=== PATIENT | male | born 1935 | race Caucasian/White ===

== ENCOUNTER 2018-10-04 14:40 | Emergency (ER) | payer OTHER, MEDICAID ==
[~2018-10-04] VITALS: Ht 177.8 cm; Wt 95.3 kg
[2018-10-04 14:40] VITALS: BP_SYST 97
[~2018-10-04 14:40] MED LIST: ACET325T53 PO; ARTT OP; ASPI-1155 PO; ATEN-41 PO; AZAT50TA18 GT; BACL10TA PO; BICA50TA PO; CAPT25TA3 PO; CRAN450C PO; DOCU250C14 GT; FAMO-132 GT; HYDR-1189 PO; LACT10SO66 PO; LEUP7.5D4 IM; LEVO150T8 GT; NOR10 PO; SENN-153 GT
[2018-10-04] MEDS ORDERED: methylPREDNISolone SOD SUCC/PF 62.5 MG/ML VIAL IVP ONE (14:45)
[2018-10-04] MEDS ORDERED: LOP600 GT (15:05)
[2018-10-04] MEDS ORDERED: UTI-STAT GT (15:05)
[2018-10-04] MEDS ORDERED: MOM GT (15:05)
[2018-10-04] MEDS ORDERED: RIVA10TA GT (15:05)
[2018-10-04] MEDS ORDERED: PEDI1TAB28 GT (15:05)
[2018-10-04] MEDS ORDERED: ASCO500T20 GT (15:05)
[2018-10-04] MEDS ORDERED: ATRMDI INH (15:05)
[2018-10-04] MEDS ORDERED: BISA10SU61 RC (15:05)
[2018-10-04] MEDS ORDERED: LEVA1.2527 INH ×2 (15:05)
[2018-10-04] MEDS ORDERED: ACET12.55 GT (15:05)
[2018-10-04 15:23] LABS: HEMATOCRIT 40.2 % (36-54); HEMOGLOBIN 12.9 g/dL (14.0-18.0); MEAN CORPUSCULAR HEMOGLOBIN 29 pg (27-31); MEAN CORPUSCULAR HGB CONC 32 % (32-36); MEAN CORPUSCULAR VOLUME 90 fL (79.0-98.0); PLATELET COUNT (AUTO) 253 K/uL (130-430); RED BLOOD CELL COUNT(AUTO) 4.49 MIL/uL (4.2-6.2); RED CELL DISTRIBUTION WIDTH 17.9 % (9.0-15.0); WHITE BLOOD COUNT (AUTO) 13.2 K/uL (4.8-10.8)
[2018-10-04 15:29] LABS: ANION GAP 5 (5-15); CALCIUM 11.4 mg/dL (8.4-11.0); CHLORIDE 104 mmol/L (98-107); CREATININE 0.93 mg/dL (0.55-1.30); GLUCOSE 158 mg/dL (70-99); POTASSIUM 4.5 mmol/L (3.5-5.1); SODIUM SERUM 139 mmol/L (136-145); UREA NITROGEN, BLOOD 31 mg/dL (8-21)
[2018-10-04 15:30] LABS: PROTHROMBIN TIME 10.2 SECS (9.5-12.5)
[2018-10-04 15:34] LABS: ALANINE AMINOTRANSFERASE 47 U/L (12-78); ALBUMIN 3.3 g/dL (3.4-4.8); ASPARTATE AMINOTRANSFERASE 51 U/L (10-37); TOTAL BILIRUBIN 0.4 mg/dL (0.0-1.0)
[2018-10-04 15:36] LABS: BAND % (MANUAL) 5 % (0-6); BASOPHILS % (MANUAL) 0 % (0-2); EOSINOPHILS % (MANUAL) 1 % (0-7); LYMPHOCYTES % (MANUAL) 3 % (20-46); MONOCYTES % (MANUAL) 4 % (0-11)
[2018-10-04 19:10] VITALS: BP_SYST 116
== END 2018-10-04 19:10 | disposition home or self-care (01) ==
LOC: SED 14:40
DX: R21 Rash and other nonspecific skin eruption (principal); I25.2 Old myocardial infarction; I10 Essential (primary) hypertension; K21.9 Gastro-esophageal reflux disease without esophagitis; Z85.828 Personal history of other malignant neoplasm of skin; Z79.82 Long term (current) use of aspirin; Z79.899 Other long term (current) drug therapy
CPT/HCPCS: 36415; 71045; 80053; 83605; 83880; 84484; 85007; 85027; 85610; 86710; 87040; 93005; 94640; 96374; 99283; J2930

== ENCOUNTER 2018-10-23 06:21 | Inpatient (IN) | payer OTHER, MEDICAID ==
[2018-10-23] VITALS (27 sets, daily range): BP systolic 81–139
[~2018-10-23] VITALS: Ht 165.1 cm; Wt 89.8 kg
[~2018-10-23 06:21] MED LIST changes: +ACET12.55 GT; +ACET325T53 GT; -ACET325T53 PO; +ASCO500T20 GT; +ATRMDI INH; +BISA10SU61 RC; +LEVA1.2527 INH; +LOP600 GT; +MOM GT; +PEDI1TAB28 GT; +RIVA10TA GT; +UTI-STAT GT
[2018-10-23] MEDS ORDERED: VANCOMYCIN HCL 1,000 MG in NS 250 ML IV ONE (06:30)
[2018-10-23 07:00] LABS: ANION GAP 4 (5-15); BASOPHILS % (AUTO) 0.2 % (0.0-2.0); CALCIUM 10.4 mg/dL (8.4-11.0); CHLORIDE 110 mmol/L (98-107); CREATININE 0.75 mg/dL (0.55-1.30); EOSINOPHILS # (AUTO) 0.1 K/uL (0.0-0.4); EOSINOPHILS % (AUTO) 0.7 % (0.0-4.0); GLUCOSE 135 mg/dL (70-99); HEMATOCRIT 33.7 % (36-54); HEMOGLOBIN 11.2 g/dL (14.0-18.0); LYMPHOCYTES # (AUTO) 0.2 K/uL (1.0-5.5); LYMPHOCYTES % (AUTO) 2.4 % (20.5-51.5); MEAN CORPUSCULAR HEMOGLOBIN 29 pg (27-31); MEAN CORPUSCULAR HGB CONC 33 % (32-36); MEAN CORPUSCULAR VOLUME 87 fL (79.0-98.0); MONOCYTES # (AUTO) 0.5 K/uL (0.0-1.0); MONOCYTES % (AUTO) 5.4 % (1.7-9.3); NEUTROPHILS # (AUTO) 8.8 K/uL (1.8-7.7); NEUTROPHILS % (AUTO) 91.3 % (40.0-70.0); PLATELET COUNT (AUTO) 516 K/uL (130-430); POTASSIUM 5.4 mmol/L (3.5-5.1); RED BLOOD CELL COUNT(AUTO) 3.86 MIL/uL (4.2-6.2); RED CELL DISTRIBUTION WIDTH 17.8 % (9.0-15.0); SODIUM SERUM 146 mmol/L (136-145); UREA NITROGEN, BLOOD 20 mg/dL (8-21); WHITE BLOOD COUNT (AUTO) 9.6 K/uL (4.8-10.8)
[2018-10-23] MEDS ORDERED: VANCOMYCIN HCL 1000 MG/VIAL IV ONE (07:00)
[2018-10-23] MEDS ORDERED: NOREPINEPHRINE BITARTRATE 4 MG in NS 246 ML IV ONE (07:00)
[2018-10-23] MEDS ORDERED: NOREPINEPHRINE 4 MG/4 ML VIAL IV ONE (07:00)
[2018-10-23 07:09] LABS: ALANINE AMINOTRANSFERASE 9 U/L (12-78); ALBUMIN 2.2 g/dL (3.4-4.8); ASPARTATE AMINOTRANSFERASE 18 U/L (10-37); TOTAL BILIRUBIN 0.2 mg/dL (0.0-1.0)
[2018-10-23] MEDS ORDERED: NACL 0.9% 2,000 ML IV ONE (07:15)
[2018-10-23 07:30] LABS: PROTHROMBIN TIME 10.1 SECS (9.5-12.5)
[2018-10-23] MEDS ORDERED: KCL 20 mEq in 0.45% NS 1000 mL 1,000 ML IV ONE (09:00)
[2018-10-23] MEDS ORDERED: 0.45% NACL 1,000 ML IV SCH (10:30)
[2018-10-23 11:43] LABS: BILIRUBIN,URINE NEGATIVE (NEGATIVE); BLOOD, URINE NEGATIVE (NEGATIVE); CLARITY/URINE CLEAR (CLEAR); COLOR,URINE YELLOW (YELLOW); GLUCOSE,URINE NEGATIVE (NEGATIVE); KETONES,URINE NEGATIVE (NEGATIVE); LEUKOCYTE ESTERASE ,URINE TRACE (NEGATIVE); NITRITE, URINE NEGATIVE (NEGATIVE); PROTEIN URINE 1+ (NEGATIVE); UROBILINOGEN,URINE 0.2 (0.2-1.0)
[2018-10-23 12:20] LABS: BACTERIA,URINE FEW /HPF (None Seen); MUCUS,URINE None Seen /LPF (None Seen)
[2018-10-23] MEDS: PIPERACILLIN/TAZO 3.375 GM in NS 50 ML IV SCH ×3 (12:47→23:28)
[2018-10-23] MEDS ORDERED: BISACODYL 10 MG/SUPPOSITORY RC SCH (13:45)
[2018-10-23] MEDS ORDERED: HYDROcodone/ACETAMIN 5-325 MG TAB (NORCO/ VICODIN) GT PRN ×2 (13:45)
[2018-10-23] MEDS ORDERED: IPRATROPIUM BROM 0.5 MG/2.5 ML VIAL.NEB (ATROVENT) INH PRN ×2 (13:45→15:00)
[2018-10-23] MEDS ORDERED: PEG 400/HYPROMELLOSE/GLYCERIN 15 ML DROPS OP SCH (13:45)
[2018-10-23] MEDS ORDERED: MILK OF MAGNESIA 30 ML UDC GT SCH (13:45)
[2018-10-23] MEDS ORDERED: ACETAMINOPHEN 325 MG TABLET GT PRN (13:45)
[2018-10-23] MEDS ORDERED: ACETAMINOPHEN WITH CODEINE 12.5 ML UDC GT SCH (13:45)
[2018-10-23] MEDS ORDERED: ALBUMIN HUMAN 25% 100 ML IV ONE ×2 (14:30→14:31)
[2018-10-23] MEDS: ceFAZolin SODIUM 2 GM in D5W 100 ML IV SCH ×2 (14:43→21:43)
[2018-10-23] MEDS ORDERED: ALBUTEROL SULFATE 0.083% 2.5 MG/3 ML VIAL.NEB INH PRN (15:00)
[2018-10-23] MEDS: BACLOFEN 10 MG TABLET GT SCH ×2 (17:32→20:44)
[2018-10-23] MEDS ORDERED: DEXTROSE 50% JECT 50 ML DISP.SYRIN IVP PRN (17:45)
[2018-10-23] MEDS ORDERED: COMMUNICATION ORDER XX ONE (19:15)
[2018-10-23] MEDS: IPRATROPIUM BROM 0.5 MG/2.5 ML VIAL.NEB (ATROVENT) INH SCH (19:33)
[2018-10-23] MEDS: ALBUTEROL SULFATE 0.083% 2.5 MG/3 ML VIAL.NEB INH SCH (19:33)
[2018-10-23] MEDS: GEMFIBROZIL 600 MG TABLET (LOPID) GT SCH (20:43)
[2018-10-23] MEDS: SENNOSIDES 8.6 MG TABLET GT SCH (20:44)
[2018-10-23] MEDS: ASCORBIC ACID 500 MG TABLET GT SCH (20:45)
[2018-10-23] MEDS: RIVAROXABAN 10 MG TABLET GT SCH (20:45)
[2018-10-23] MEDS: D5/0.45 NS 1,000 ML IV SCH (21:11)
[2018-10-24] VITALS (32 sets, daily range): BP systolic 97–153
[2018-10-24] MEDS: ALBUTEROL SULFATE 0.083% 2.5 MG/3 ML VIAL.NEB INH SCH ×4 (01:00→20:09)
[2018-10-24] MEDS: IPRATROPIUM BROM 0.5 MG/2.5 ML VIAL.NEB (ATROVENT) INH SCH ×4 (01:00→20:09)
[2018-10-24] MEDS: D5/0.45 NS 1,000 ML IV SCH ×2 (04:37→14:31)
[2018-10-24] MEDS: PIPERACILLIN/TAZO 3.375 GM in NS 50 ML IV SCH ×4 (05:26→23:39)
[2018-10-24] MEDS: ceFAZolin SODIUM 2 GM in D5W 100 ML IV SCH ×3 (06:13→21:37)
[2018-10-24 06:42] LABS: ANION GAP 8 (5-15); CALCIUM 8.9 mg/dL (8.4-11.0); CHLORIDE 109 mmol/L (98-107); CREATININE 0.71 mg/dL (0.55-1.30); GLUCOSE 102 mg/dL (70-99); POTASSIUM 3.7 mmol/L (3.5-5.1); SODIUM SERUM 144 mmol/L (136-145); UREA NITROGEN, BLOOD 16 mg/dL (8-21)
[2018-10-24 07:17] LABS: BASOPHILS % (AUTO) 0.7 % (0.0-2.0); EOSINOPHILS # (AUTO) 0.2 K/uL (0.0-0.4); EOSINOPHILS % (AUTO) 2.9 % (0.0-4.0); HEMATOCRIT 27.2 % (36-54); HEMOGLOBIN 8.9 g/dL (14.0-18.0); LYMPHOCYTES # (AUTO) 0.8 K/uL (1.0-5.5); LYMPHOCYTES % (AUTO) 10.9 % (20.5-51.5); MEAN CORPUSCULAR HEMOGLOBIN 29 pg (27-31); MEAN CORPUSCULAR HGB CONC 33 % (32-36); MEAN CORPUSCULAR VOLUME 88 fL (79.0-98.0); MONOCYTES # (AUTO) 0.5 K/uL (0.0-1.0); MONOCYTES % (AUTO) 6.7 % (1.7-9.3); NEUTROPHILS # (AUTO) 5.6 K/uL (1.8-7.7); NEUTROPHILS % (AUTO) 78.8 % (40.0-70.0); PLATELET COUNT (AUTO) 352 K/uL (130-430); RED BLOOD CELL COUNT(AUTO) 3.08 MIL/uL (4.2-6.2); RED CELL DISTRIBUTION WIDTH 18.1 % (9.0-15.0)
[2018-10-24 07:29] LABS: WHITE BLOOD COUNT (AUTO) 7.1 K/uL (4.8-10.8)
[2018-10-24] MEDS: BACLOFEN 10 MG TABLET GT SCH ×4 (09:01→20:24)
[2018-10-24] MEDS: FAMOTIDINE 20 MG TABLET GT SCH (09:01)
[2018-10-24] MEDS: GEMFIBROZIL 600 MG TABLET (LOPID) GT SCH ×2 (09:05→20:24)
[2018-10-24] MEDS: LEVOTHYROXINE SODIUM 0.15 MG TABLET GT SCH (09:05)
[2018-10-24] MEDS: LACTULOSE 20 GM/30 ML UDC GT SCH (09:06)
[2018-10-24] MEDS: DOCUSATE SODIUM 100 MG/10 ML UDC GT SCH (09:06)
[2018-10-24] MEDS: amLODIPine BESYLATE 10 MG TABLET GT SCH (09:07)
[2018-10-24] MEDS: ASCORBIC ACID 500 MG TABLET GT SCH ×2 (09:07→20:24)
[2018-10-24] MEDS: azaTHIOprine 50 MG TABLET GT SCH (09:08)
[2018-10-24] MEDS: ASPIRIN 81 MG TAB.CHEW GT SCH (09:08)
[2018-10-24] MEDS: ATENOLOL 25 MG TABLET(TENORMIN) GT SCH (09:09)
[2018-10-24] MEDS: SENNOSIDES 8.6 MG TABLET GT SCH (20:24)
[2018-10-24] MEDS: RIVAROXABAN 10 MG TABLET GT SCH (20:25)
[2018-10-25] VITALS (30 sets, daily range): BP systolic 114–146
[2018-10-25] MEDS: IPRATROPIUM BROM 0.5 MG/2.5 ML VIAL.NEB (ATROVENT) INH SCH ×2 (02:31→19:14)
[2018-10-25] MEDS: ALBUTEROL SULFATE 0.083% 2.5 MG/3 ML VIAL.NEB INH SCH ×2 (02:31→19:14)
[2018-10-25] MEDS: D5/0.45 NS 1,000 ML IV SCH ×2 (04:55→18:07)
[2018-10-25] MEDS: PIPERACILLIN/TAZO 3.375 GM in NS 50 ML IV SCH ×4 (05:26→23:36)
[2018-10-25] MEDS: ceFAZolin SODIUM 2 GM in D5W 100 ML IV SCH (06:16)
[2018-10-25 08:24] LABS: BASOPHILS % (AUTO) 0.2 % (0.0-2.0); EOSINOPHILS # (AUTO) 0.1 K/uL (0.0-0.4); EOSINOPHILS % (AUTO) 2.1 % (0.0-4.0); HEMATOCRIT 27.6 % (36-54); HEMOGLOBIN 8.7 g/dL (14.0-18.0); LYMPHOCYTES # (AUTO) 0.7 K/uL (1.0-5.5); LYMPHOCYTES % (AUTO) 10.5 % (20.5-51.5); MEAN CORPUSCULAR HEMOGLOBIN 28 pg (27-31); MEAN CORPUSCULAR HGB CONC 32 % (32-36); MEAN CORPUSCULAR VOLUME 88 fL (79.0-98.0); MONOCYTES # (AUTO) 0.5 K/uL (0.0-1.0); MONOCYTES % (AUTO) 8.2 % (1.7-9.3); NEUTROPHILS # (AUTO) 5.2 K/uL (1.8-7.7); PLATELET COUNT (AUTO) 303 K/uL (130-430); RED BLOOD CELL COUNT(AUTO) 3.13 MIL/uL (4.2-6.2); RED CELL DISTRIBUTION WIDTH 18.6 % (9.0-15.0); WHITE BLOOD COUNT (AUTO) 6.5 K/uL (4.8-10.8)
[2018-10-25] MEDS: BACLOFEN 10 MG TABLET GT SCH ×4 (08:36→21:18)
[2018-10-25] MEDS: DOCUSATE SODIUM 100 MG/10 ML UDC GT SCH (08:36)
[2018-10-25] MEDS: GEMFIBROZIL 600 MG TABLET (LOPID) GT SCH ×2 (08:37→21:18)
[2018-10-25] MEDS: amLODIPine BESYLATE 10 MG TABLET GT SCH (08:37)
[2018-10-25] MEDS: LEVOTHYROXINE SODIUM 0.15 MG TABLET GT SCH (08:38)
[2018-10-25] MEDS: ASCORBIC ACID 500 MG TABLET GT SCH ×2 (08:38→21:18)
[2018-10-25] MEDS: LACTULOSE 20 GM/30 ML UDC GT SCH (08:38)
[2018-10-25] MEDS: FAMOTIDINE 20 MG TABLET GT SCH (08:39)
[2018-10-25] MEDS: ASPIRIN 81 MG TAB.CHEW GT SCH (08:39)
[2018-10-25] MEDS: azaTHIOprine 50 MG TABLET GT SCH (08:41)
[2018-10-25] MEDS: ATENOLOL 25 MG TABLET(TENORMIN) GT SCH (08:41)
[2018-10-25 08:52] LABS: ANION GAP 9 (5-15); CALCIUM 8.6 mg/dL (8.4-11.0); CHLORIDE 104 mmol/L (98-107); CREATININE 0.77 mg/dL (0.55-1.30); GLUCOSE 300 mg/dL (70-99); SODIUM SERUM 138 mmol/L (136-145); UREA NITROGEN, BLOOD 14 mg/dL (8-21)
[2018-10-25] MEDS ORDERED: FUROSEMIDE 20 MG/2 ML VIAL IVP ONE (10:45)
[2018-10-25] MEDS: SENNOSIDES 8.6 MG TABLET GT SCH (21:18)
[2018-10-25] MEDS: RIVAROXABAN 10 MG TABLET GT SCH (21:19)
[2018-10-25] MEDS: CEFAZOLIN 2 GM IVPB PREMIX 50 ML IV SCH (21:30)
[2018-10-26] VITALS (35 sets, daily range): BP systolic 96–168
[2018-10-26] MEDS: ALBUTEROL SULFATE 0.083% 2.5 MG/3 ML VIAL.NEB INH SCH ×4 (01:18→19:06)
[2018-10-26] MEDS: IPRATROPIUM BROM 0.5 MG/2.5 ML VIAL.NEB (ATROVENT) INH SCH ×4 (01:18→19:06)
[2018-10-26] MEDS: PIPERACILLIN/TAZO 3.375 GM in NS 50 ML IV SCH (05:30)
[2018-10-26] MEDS: CEFAZOLIN 2 GM IVPB PREMIX 50 ML IV SCH (06:15)
[2018-10-26] MEDS: D5/0.45 NS 1,000 ML IV SCH ×2 (07:47→21:10)
[2018-10-26] MEDS: GEMFIBROZIL 600 MG TABLET (LOPID) GT SCH ×2 (09:24→20:37)
[2018-10-26] MEDS: DOCUSATE SODIUM 100 MG/10 ML UDC GT SCH (09:24)
[2018-10-26] MEDS: LACTULOSE 20 GM/30 ML UDC GT SCH (09:24)
[2018-10-26] MEDS: ASPIRIN 81 MG TAB.CHEW GT SCH (09:25)
[2018-10-26] MEDS: FAMOTIDINE 20 MG TABLET GT SCH (09:25)
[2018-10-26] MEDS: ASCORBIC ACID 500 MG TABLET GT SCH ×2 (09:25→20:37)
[2018-10-26] MEDS: BACLOFEN 10 MG TABLET GT SCH ×4 (09:25→20:37)
[2018-10-26] MEDS: LEVOTHYROXINE SODIUM 0.15 MG TABLET GT SCH (09:26)
[2018-10-26] MEDS: azaTHIOprine 50 MG TABLET GT SCH (09:27)
[2018-10-26] MEDS: ATENOLOL 25 MG TABLET(TENORMIN) GT SCH (09:31)
[2018-10-26] MEDS: amLODIPine BESYLATE 10 MG TABLET GT SCH (09:31)
[2018-10-26 10:27] LABS: BASOPHILS % (AUTO) 0.3 % (0.0-2.0); EOSINOPHILS # (AUTO) 0.2 K/uL (0.0-0.4); EOSINOPHILS % (AUTO) 3.1 % (0.0-4.0); HEMATOCRIT 27.4 % (36-54); HEMOGLOBIN 8.8 g/dL (14.0-18.0); LYMPHOCYTES # (AUTO) 0.7 K/uL (1.0-5.5); MEAN CORPUSCULAR HEMOGLOBIN 29 pg (27-31); MEAN CORPUSCULAR HGB CONC 32 % (32-36); MEAN CORPUSCULAR VOLUME 89 fL (79.0-98.0); MONOCYTES # (AUTO) 0.4 K/uL (0.0-1.0); MONOCYTES % (AUTO) 7.5 % (1.7-9.3); NEUTROPHILS # (AUTO) 4.1 K/uL (1.8-7.7); NEUTROPHILS % (AUTO) 77.1 % (40.0-70.0); PLATELET COUNT (AUTO) 274 K/uL (130-430); RED BLOOD CELL COUNT(AUTO) 3.08 MIL/uL (4.2-6.2); RED CELL DISTRIBUTION WIDTH 20.1 % (9.0-15.0); WHITE BLOOD COUNT (AUTO) 5.4 K/uL (4.8-10.8)
[2018-10-26 10:39] LABS: ANION GAP 8 (5-15); CALCIUM 8.8 mg/dL (8.4-11.0); CHLORIDE 104 mmol/L (98-107); CREATININE 0.82 mg/dL (0.55-1.30); GLUCOSE 283 mg/dL (70-99); POTASSIUM 3.5 mmol/L (3.5-5.1); SODIUM SERUM 137 mmol/L (136-145); UREA NITROGEN, BLOOD 11 mg/dL (8-21)
[2018-10-26] MEDS ORDERED: POTASSIUM CHLORIDE 20 MEQ/PKT PACKET GT ONE (11:00)
[2018-10-26] MEDS ORDERED: FUROSEMIDE 20 MG/2 ML VIAL IVP ONE (11:00)
[2018-10-26] MEDS: CEFTOLOZANE IV SCH ×2 (13:39→21:58)
[2018-10-26] MEDS: TAZOBACTAM IV SCH ×2 (13:39→21:58)
[2018-10-26] MEDS: D5W IV SCH ×2 (13:39→21:58)
[2018-10-26] MEDS: SENNOSIDES 8.6 MG TABLET GT SCH (20:37)
[2018-10-26] MEDS: RIVAROXABAN 10 MG TABLET GT SCH (21:09)
[2018-10-27] VITALS (30 sets, daily range): BP systolic 101–150
[2018-10-27] MEDS: IPRATROPIUM BROM 0.5 MG/2.5 ML VIAL.NEB (ATROVENT) INH SCH ×4 (00:46→19:33)
[2018-10-27] MEDS: ALBUTEROL SULFATE 0.083% 2.5 MG/3 ML VIAL.NEB INH SCH ×4 (00:46→19:32)
[2018-10-27] MEDS: TAZOBACTAM IV SCH ×3 (05:45→21:09)
[2018-10-27] MEDS: D5W IV SCH ×3 (05:45→21:09)
[2018-10-27] MEDS: CEFTOLOZANE IV SCH ×3 (05:45→21:09)
[2018-10-27 07:45] LABS: ANION GAP 8 (5-15); CALCIUM 9.3 mg/dL (8.4-11.0); CHLORIDE 105 mmol/L (98-107); CREATININE 0.63 mg/dL (0.55-1.30); GLUCOSE 104 mg/dL (70-99); POTASSIUM 3.9 mmol/L (3.5-5.1); SODIUM SERUM 139 mmol/L (136-145); UREA NITROGEN, BLOOD 13 mg/dL (8-21)
[2018-10-27] MEDS: DOCUSATE SODIUM 100 MG/10 ML UDC GT SCH (09:00)
[2018-10-27] MEDS: POTASSIUM CHLORIDE 20 MEQ/PKT PACKET PO SCH ×2 (09:00→18:56)
[2018-10-27] MEDS: FUROSEMIDE 20 MG/2 ML VIAL IVP SCH ×2 (09:00→18:57)
[2018-10-27] MEDS: LACTULOSE 20 GM/30 ML UDC GT SCH (09:00)
[2018-10-27] MEDS: ASCORBIC ACID 500 MG TABLET GT SCH ×2 (09:01→20:26)
[2018-10-27] MEDS: ASPIRIN 81 MG TAB.CHEW GT SCH (09:01)
[2018-10-27] MEDS: GEMFIBROZIL 600 MG TABLET (LOPID) GT SCH ×2 (09:01→20:26)
[2018-10-27] MEDS: azaTHIOprine 50 MG TABLET GT SCH (09:01)
[2018-10-27] MEDS: LEVOTHYROXINE SODIUM 0.15 MG TABLET GT SCH (09:01)
[2018-10-27] MEDS: amLODIPine BESYLATE 10 MG TABLET GT SCH (09:02)
[2018-10-27] MEDS: ATENOLOL 25 MG TABLET(TENORMIN) GT SCH (09:02)
[2018-10-27] MEDS: FAMOTIDINE 20 MG TABLET GT SCH (09:02)
[2018-10-27] MEDS: BACLOFEN 10 MG TABLET GT SCH ×4 (09:02→20:26)
[2018-10-27] MEDS: D5/0.45 NS 1,000 ML IV SCH (14:00)
[2018-10-27] MEDS: SENNOSIDES 8.6 MG TABLET GT SCH (20:26)
[2018-10-27] MEDS: RIVAROXABAN 10 MG TABLET GT SCH (20:28)
[2018-10-27 23:20] LABS: BODY FLUID GLUCOSE 125 mg/dL; BODY FLUID TOTAL PROTEIN 3.9 g/dL
[2018-10-28] VITALS (31 sets, daily range): BP systolic 101–140
[2018-10-28 00:10] LABS: APPEARANCE,SPUN,BODY FLUID CLEAR (CLEAR); BF APPEARANCE UNSPUN CLOUDY (CLEAR); BODY FLUID COLOR YELLOW (LT YELLOW); BODY FLUID SOURCE/ TYPE PLEURAL; BODY FLUID TOTAL VOLUME 1000 mL; SOURCE/TYPE ,BODY FLUID PLEURAL; WBC, BODY FLUID 273 /uL
[2018-10-28 00:11] LABS: RBC, BODY FLUID 1138 /uL
[2018-10-28 00:12] LABS: EOSINOPHIL, BODY FLUID 0 %; LYMPHOCYTES, BODY FLUID 38 %; MONOCYTES,BODY FLUID 5 %; NEUTROPHIL, BODY FLUID 57 %
[2018-10-28] MEDS: IPRATROPIUM BROM 0.5 MG/2.5 ML VIAL.NEB (ATROVENT) INH SCH ×4 (00:48→19:43)
[2018-10-28] MEDS: ALBUTEROL SULFATE 0.083% 2.5 MG/3 ML VIAL.NEB INH SCH ×4 (00:49→19:43)
[2018-10-28] MEDS: TAZOBACTAM IV SCH ×3 (05:59→22:02)
[2018-10-28] MEDS: CEFTOLOZANE IV SCH ×3 (05:59→22:02)
[2018-10-28] MEDS: D5W IV SCH ×3 (05:59→22:02)
[2018-10-28] MEDS: D5/0.45 NS 1,000 ML IV SCH ×2 (05:59→17:47)
[2018-10-28 06:43] LABS: BASOPHILS % (AUTO) 0.2 % (0.0-2.0); EOSINOPHILS # (AUTO) 0.1 K/uL (0.0-0.4); EOSINOPHILS % (AUTO) 1.4 % (0.0-4.0); HEMOGLOBIN 9.6 g/dL (14.0-18.0); LYMPHOCYTES # (AUTO) 0.6 K/uL (1.0-5.5); LYMPHOCYTES % (AUTO) 7.2 % (20.5-51.5); MEAN CORPUSCULAR HEMOGLOBIN 29 pg (27-31); MEAN CORPUSCULAR HGB CONC 33 % (32-36); MEAN CORPUSCULAR VOLUME 89 fL (79.0-98.0); MONOCYTES # (AUTO) 0.5 K/uL (0.0-1.0); MONOCYTES % (AUTO) 6.9 % (1.7-9.3); NEUTROPHILS # (AUTO) 6.6 K/uL (1.8-7.7); NEUTROPHILS % (AUTO) 84.3 % (40.0-70.0); PLATELET COUNT (AUTO) 207 K/uL (130-430); RED BLOOD CELL COUNT(AUTO) 3.28 MIL/uL (4.2-6.2); RED CELL DISTRIBUTION WIDTH 19.4 % (9.0-15.0); WHITE BLOOD COUNT (AUTO) 7.8 K/uL (4.8-10.8)
[2018-10-28 06:52] LABS: ANION GAP 7 (5-15); CHLORIDE 102 mmol/L (98-107); CREATININE 0.62 mg/dL (0.55-1.30); GLUCOSE 106 mg/dL (70-99); SODIUM SERUM 136 mmol/L (136-145); UREA NITROGEN, BLOOD 12 mg/dL (8-21)
[2018-10-28 07:21] LABS: TOTAL IRON BIND. CAPACITY 197 ug/dL (250-450)
[2018-10-28] MEDS: ASCORBIC ACID 500 MG TABLET GT SCH ×2 (08:50→20:22)
[2018-10-28] MEDS: DOCUSATE SODIUM 100 MG/10 ML UDC GT SCH (08:50)
[2018-10-28] MEDS: ASPIRIN 81 MG TAB.CHEW GT SCH (08:50)
[2018-10-28] MEDS: LACTULOSE 20 GM/30 ML UDC GT SCH (08:50)
[2018-10-28] MEDS: amLODIPine BESYLATE 10 MG TABLET GT SCH (08:51)
[2018-10-28] MEDS: ATENOLOL 25 MG TABLET(TENORMIN) GT SCH (08:51)
[2018-10-28] MEDS: FAMOTIDINE 20 MG TABLET GT SCH (08:51)
[2018-10-28] MEDS: GEMFIBROZIL 600 MG TABLET (LOPID) GT SCH ×2 (08:51→20:22)
[2018-10-28] MEDS: BACLOFEN 10 MG TABLET GT SCH ×4 (08:51→20:22)
[2018-10-28] MEDS: azaTHIOprine 50 MG TABLET GT SCH (08:52)
[2018-10-28] MEDS: LEVOTHYROXINE SODIUM 0.15 MG TABLET GT SCH (08:52)
[2018-10-28] MEDS ORDERED: POTASSIUM CHLORIDE 20 MEQ/PKT PACKET GT ONE (09:00)
[2018-10-28] MEDS ORDERED: FUROSEMIDE 20 MG/2 ML VIAL IVP ONE (09:00)
[2018-10-28] MEDS: SENNOSIDES 8.6 MG TABLET GT SCH (20:21)
[2018-10-28] MEDS: POTASSIUM CHLORIDE 20 MEQ/PKT PACKET GT SCH (20:22)
[2018-10-28] MEDS: FUROSEMIDE 20 MG/2 ML VIAL IVP SCH (20:22)
[2018-10-28] MEDS: RIVAROXABAN 10 MG TABLET GT SCH (21:59)
[2018-10-29] VITALS (32 sets, daily range): BP systolic 94–137
[2018-10-29] MEDS: ALBUTEROL SULFATE 0.083% 2.5 MG/3 ML VIAL.NEB INH SCH ×4 (00:56→19:38)
[2018-10-29] MEDS: IPRATROPIUM BROM 0.5 MG/2.5 ML VIAL.NEB (ATROVENT) INH SCH ×4 (00:56→19:38)
[2018-10-29] MEDS: CEFTOLOZANE IV SCH ×3 (05:34→21:40)
[2018-10-29] MEDS: D5W IV SCH ×3 (05:34→21:40)
[2018-10-29] MEDS: TAZOBACTAM IV SCH ×3 (05:34→21:40)
[2018-10-29 07:00] LABS: ANION GAP 8 (5-15); CHLORIDE 102 mmol/L (98-107); CREATININE 0.64 mg/dL (0.55-1.30); GLUCOSE 101 mg/dL (70-99); POTASSIUM 4.4 mmol/L (3.5-5.1); SODIUM SERUM 135 mmol/L (136-145); UREA NITROGEN, BLOOD 14 mg/dL (8-21)
[2018-10-29] MEDS: ASPIRIN 81 MG TAB.CHEW GT SCH (08:35)
[2018-10-29] MEDS: POTASSIUM CHLORIDE 20 MEQ/PKT PACKET GT SCH ×2 (08:35→20:30)
[2018-10-29] MEDS: BACLOFEN 10 MG TABLET GT SCH ×4 (08:35→20:30)
[2018-10-29] MEDS: DOCUSATE SODIUM 100 MG/10 ML UDC GT SCH (08:35)
[2018-10-29] MEDS: FAMOTIDINE 20 MG TABLET GT SCH (08:35)
[2018-10-29] MEDS: azaTHIOprine 50 MG TABLET GT SCH (08:35)
[2018-10-29] MEDS: GEMFIBROZIL 600 MG TABLET (LOPID) GT SCH ×2 (08:35→20:31)
[2018-10-29] MEDS: ASCORBIC ACID 500 MG TABLET GT SCH ×2 (08:35→20:30)
[2018-10-29] MEDS: ATENOLOL 25 MG TABLET(TENORMIN) GT SCH (08:36)
[2018-10-29] MEDS: LEVOTHYROXINE SODIUM 0.15 MG TABLET GT SCH (08:36)
[2018-10-29] MEDS: amLODIPine BESYLATE 10 MG TABLET GT SCH (08:36)
[2018-10-29] MEDS: LACTULOSE 20 GM/30 ML UDC GT SCH (08:37)
[2018-10-29] MEDS: FUROSEMIDE 20 MG/2 ML VIAL IVP SCH ×2 (08:37→20:32)
[2018-10-29] MEDS ORDERED: CLOTRIMAZOLE 1% TOPICAL CREAM 15 GM TP ONE (16:15)
[2018-10-29] MEDS: CLOTRIMAZOLE 1% TOPICAL CREAM 15 GM TP SCH (18:01)
[2018-10-29] MEDS: D5/0.45 NS 1,000 ML IV SCH (19:02)
[2018-10-29] MEDS: SENNOSIDES 8.6 MG TABLET GT SCH (20:30)
[2018-10-29] MEDS: RIVAROXABAN 10 MG TABLET GT SCH (20:32)
[2018-10-30] VITALS (31 sets, daily range): BP systolic 94–140
[2018-10-30] MEDS: IPRATROPIUM BROM 0.5 MG/2.5 ML VIAL.NEB (ATROVENT) INH SCH ×4 (01:20→20:14)
[2018-10-30] MEDS: ALBUTEROL SULFATE 0.083% 2.5 MG/3 ML VIAL.NEB INH SCH ×4 (01:20→20:14)
[2018-10-30] MEDS: D5W IV SCH ×3 (05:42→22:05)
[2018-10-30] MEDS: TAZOBACTAM IV SCH ×3 (05:42→22:05)
[2018-10-30] MEDS: CEFTOLOZANE IV SCH ×3 (05:42→22:05)
[2018-10-30 07:11] LABS: FOLATE (FOLIC ACID) 12.3 ng/mL (>3.0)
[2018-10-30 07:40] LABS: ANION GAP 6 (5-15); CALCIUM 9.3 mg/dL (8.4-11.0); CHLORIDE 102 mmol/L (98-107); CREATININE 0.71 mg/dL (0.55-1.30); GLUCOSE 111 mg/dL (70-99); POTASSIUM 4.6 mmol/L (3.5-5.1); SODIUM SERUM 137 mmol/L (136-145); UREA NITROGEN, BLOOD 15 mg/dL (8-21)
[2018-10-30] MEDS: CLOTRIMAZOLE 1% TOPICAL CREAM 15 GM TP SCH ×2 (08:00→20:17)
[2018-10-30] MEDS: LACTULOSE 20 GM/30 ML UDC GT SCH (09:01)
[2018-10-30] MEDS: DOCUSATE SODIUM 100 MG/10 ML UDC GT SCH (09:01)
[2018-10-30] MEDS: POTASSIUM CHLORIDE 20 MEQ/PKT PACKET GT SCH ×2 (09:02→20:10)
[2018-10-30] MEDS: LEVOTHYROXINE SODIUM 0.15 MG TABLET GT SCH (09:02)
[2018-10-30] MEDS: BACLOFEN 10 MG TABLET GT SCH ×4 (09:02→20:10)
[2018-10-30] MEDS: GEMFIBROZIL 600 MG TABLET (LOPID) GT SCH ×2 (09:02→20:11)
[2018-10-30] MEDS: ASCORBIC ACID 500 MG TABLET GT SCH ×2 (09:02→20:11)
[2018-10-30] MEDS: ASPIRIN 81 MG TAB.CHEW GT SCH (09:03)
[2018-10-30] MEDS: FAMOTIDINE 20 MG TABLET GT SCH (09:03)
[2018-10-30] MEDS: azaTHIOprine 50 MG TABLET GT SCH (09:03)
[2018-10-30] MEDS: amLODIPine BESYLATE 10 MG TABLET GT SCH (09:04)
[2018-10-30] MEDS: FUROSEMIDE 20 MG/2 ML VIAL IVP SCH ×2 (09:04→20:12)
[2018-10-30] MEDS: ATENOLOL 25 MG TABLET(TENORMIN) GT SCH (09:05)
[2018-10-30] MEDS: SENNOSIDES 8.6 MG TABLET GT SCH (20:11)
[2018-10-30] MEDS: RIVAROXABAN 10 MG TABLET GT SCH (20:14)
[2018-10-30] MEDS: D5/0.45 NS 1,000 ML IV SCH (20:17)
[2018-10-31] VITALS (32 sets, daily range): BP systolic 82–140
[2018-10-31] MEDS: ALBUTEROL SULFATE 0.083% 2.5 MG/3 ML VIAL.NEB INH SCH ×4 (01:55→19:02)
[2018-10-31] MEDS: IPRATROPIUM BROM 0.5 MG/2.5 ML VIAL.NEB (ATROVENT) INH SCH ×4 (01:56→19:02)
[2018-10-31] MEDS: CEFTOLOZANE IV SCH ×3 (05:47→22:33)
[2018-10-31] MEDS: TAZOBACTAM IV SCH ×3 (05:47→22:33)
[2018-10-31] MEDS: D5W IV SCH ×3 (05:47→22:33)
[2018-10-31 06:57] LABS: ANION GAP 11 (5-15); CHLORIDE 100 mmol/L (98-107); CREATININE 0.69 mg/dL (0.55-1.30); GLUCOSE 103 mg/dL (70-99); POTASSIUM 4.4 mmol/L (3.5-5.1); SODIUM SERUM 137 mmol/L (136-145); UREA NITROGEN, BLOOD 18 mg/dL (8-21)
[2018-10-31 06:59] LABS: BASOPHILS % (AUTO) 0.4 % (0.0-2.0); EOSINOPHILS # (AUTO) 0.2 K/uL (0.0-0.4); EOSINOPHILS % (AUTO) 3.2 % (0.0-4.0); HEMATOCRIT 28.6 % (36-54); HEMOGLOBIN 9.7 g/dL (14.0-18.0); LYMPHOCYTES # (AUTO) 0.9 K/uL (1.0-5.5); LYMPHOCYTES % (AUTO) 15.6 % (20.5-51.5); MEAN CORPUSCULAR HEMOGLOBIN 30 pg (27-31); MEAN CORPUSCULAR HGB CONC 34 % (32-36); MEAN CORPUSCULAR VOLUME 88 fL (79.0-98.0); MONOCYTES # (AUTO) 0.6 K/uL (0.0-1.0); MONOCYTES % (AUTO) 11.5 % (1.7-9.3); NEUTROPHILS # (AUTO) 3.9 K/uL (1.8-7.7); NEUTROPHILS % (AUTO) 69.3 % (40.0-70.0); PLATELET COUNT (AUTO) 164 K/uL (130-430); RED BLOOD CELL COUNT(AUTO) 3.24 MIL/uL (4.2-6.2); RED CELL DISTRIBUTION WIDTH 20.6 % (9.0-15.0); WHITE BLOOD COUNT (AUTO) 5.6 K/uL (4.8-10.8)
[2018-10-31 07:12] LABS: ALBUMIN 2.3 g/dL (3.4-4.8); ASPARTATE AMINOTRANSFERASE 17 U/L (10-37); TOTAL BILIRUBIN 0.4 mg/dL (0.0-1.0)
[2018-10-31 08:40] LABS: ALANINE AMINOTRANSFERASE 7 U/L (12-78)
[2018-10-31] MEDS: DOCUSATE SODIUM 100 MG/10 ML UDC GT SCH (09:00)
[2018-10-31] MEDS: amLODIPine BESYLATE 10 MG TABLET GT SCH (09:00)
[2018-10-31] MEDS: ASPIRIN 81 MG TAB.CHEW GT SCH (09:20)
[2018-10-31] MEDS: LACTULOSE 20 GM/30 ML UDC GT SCH (09:20)
[2018-10-31] MEDS: POTASSIUM CHLORIDE 20 MEQ/PKT PACKET GT SCH ×2 (09:20→20:49)
[2018-10-31] MEDS: GEMFIBROZIL 600 MG TABLET (LOPID) GT SCH ×2 (09:21→20:48)
[2018-10-31] MEDS: FAMOTIDINE 20 MG TABLET GT SCH (09:21)
[2018-10-31] MEDS: ATENOLOL 25 MG TABLET(TENORMIN) GT SCH (09:22)
[2018-10-31] MEDS: BACLOFEN 10 MG TABLET GT SCH ×4 (09:22→20:48)
[2018-10-31] MEDS: FUROSEMIDE 20 MG/2 ML VIAL IVP SCH ×2 (09:23→20:49)
[2018-10-31] MEDS: LEVOTHYROXINE SODIUM 0.15 MG TABLET GT SCH (09:24)
[2018-10-31] MEDS: ASCORBIC ACID 500 MG TABLET GT SCH ×2 (09:30→20:48)
[2018-10-31] MEDS: azaTHIOprine 50 MG TABLET GT SCH (09:30)
[2018-10-31] MEDS: CLOTRIMAZOLE 1% TOPICAL CREAM 15 GM TP SCH ×2 (09:31→20:48)
[2018-10-31] MEDS: ALBUMIN HUMAN 25% 100 ML IV PRN ×2 (12:06→16:08)
[2018-10-31] MEDS: D5/0.45 NS 1,000 ML IV SCH ×2 (16:58→23:02)
[2018-10-31] MEDS: SENNOSIDES 8.6 MG TABLET GT SCH (20:49)
[2018-10-31] MEDS: RIVAROXABAN 10 MG TABLET GT SCH (20:50)
[2018-11-01] VITALS (8 sets, daily range): BP systolic 96–155
[2018-11-01] MEDS: IPRATROPIUM BROM 0.5 MG/2.5 ML VIAL.NEB (ATROVENT) INH SCH ×4 (00:11→20:01)
[2018-11-01] MEDS: ALBUTEROL SULFATE 0.083% 2.5 MG/3 ML VIAL.NEB INH SCH ×4 (00:11→20:01)
[2018-11-01] MEDS: D5W IV SCH ×3 (05:22→21:35)
[2018-11-01] MEDS: TAZOBACTAM IV SCH ×3 (05:22→21:35)
[2018-11-01] MEDS: CEFTOLOZANE IV SCH ×3 (05:22→21:35)
[2018-11-01 07:27] LABS: BASOPHILS % (AUTO) 0.3 % (0.0-2.0); EOSINOPHILS # (AUTO) 0.1 K/uL (0.0-0.4); EOSINOPHILS % (AUTO) 2.5 % (0.0-4.0); HEMATOCRIT 25.4 % (36-54); HEMOGLOBIN 8.7 g/dL (14.0-18.0); LYMPHOCYTES # (AUTO) 0.6 K/uL (1.0-5.5); LYMPHOCYTES % (AUTO) 11.5 % (20.5-51.5); MEAN CORPUSCULAR HEMOGLOBIN 30 pg (27-31); MEAN CORPUSCULAR HGB CONC 34 % (32-36); MEAN CORPUSCULAR VOLUME 89 fL (79.0-98.0); MONOCYTES # (AUTO) 0.5 K/uL (0.0-1.0); MONOCYTES % (AUTO) 10.3 % (1.7-9.3); NEUTROPHILS # (AUTO) 4.1 K/uL (1.8-7.7); NEUTROPHILS % (AUTO) 75.4 % (40.0-70.0); PLATELET COUNT (AUTO) 146 K/uL (130-430); RED BLOOD CELL COUNT(AUTO) 2.86 MIL/uL (4.2-6.2); RED CELL DISTRIBUTION WIDTH 20.1 % (9.0-15.0); WHITE BLOOD COUNT (AUTO) 5.3 K/uL (4.8-10.8)
[2018-11-01 07:47] LABS: ANION GAP 10 (5-15); CHLORIDE 102 mmol/L (98-107); CREATININE 0.75 mg/dL (0.55-1.30); GLUCOSE 124 mg/dL (70-99); POTASSIUM 3.8 mmol/L (3.5-5.1); SODIUM SERUM 138 mmol/L (136-145); UREA NITROGEN, BLOOD 18 mg/dL (8-21)
[2018-11-01 07:56] LABS: ALANINE AMINOTRANSFERASE 6 U/L (12-78); ALBUMIN 2.6 g/dL (3.4-4.8); ASPARTATE AMINOTRANSFERASE 16 U/L (10-37); TOTAL BILIRUBIN 0.4 mg/dL (0.0-1.0)
[2018-11-01] MEDS: amLODIPine BESYLATE 10 MG TABLET GT SCH (09:00)
[2018-11-01] MEDS: ATENOLOL 25 MG TABLET(TENORMIN) GT SCH (09:00)
[2018-11-01] MEDS: FUROSEMIDE 20 MG/2 ML VIAL IVP SCH ×2 (09:00→21:34)
[2018-11-01] MEDS: LEVOTHYROXINE SODIUM 0.15 MG TABLET GT SCH (09:07)
[2018-11-01] MEDS: DOCUSATE SODIUM 100 MG/10 ML UDC GT SCH (09:08)
[2018-11-01] MEDS: FAMOTIDINE 20 MG TABLET GT SCH (09:08)
[2018-11-01] MEDS: LACTULOSE 20 GM/30 ML UDC GT SCH (09:08)
[2018-11-01] MEDS: BACLOFEN 10 MG TABLET GT SCH ×4 (09:08→21:33)
[2018-11-01] MEDS: ASCORBIC ACID 500 MG TABLET GT SCH ×2 (09:08→21:33)
[2018-11-01] MEDS: ASPIRIN 81 MG TAB.CHEW GT SCH (09:08)
[2018-11-01] MEDS: POTASSIUM CHLORIDE 20 MEQ/PKT PACKET GT SCH ×2 (09:09→21:32)
[2018-11-01] MEDS: GEMFIBROZIL 600 MG TABLET (LOPID) GT SCH ×2 (09:09→21:38)
[2018-11-01] MEDS: azaTHIOprine 50 MG TABLET GT SCH (09:10)
[2018-11-01] MEDS: CLOTRIMAZOLE 1% TOPICAL CREAM 15 GM TP SCH ×2 (09:15→21:32)
[2018-11-01] MEDS: SENNOSIDES 8.6 MG TABLET GT SCH (21:33)
[2018-11-01] MEDS: RIVAROXABAN 10 MG TABLET GT SCH (21:33)
[2018-11-01] MEDS: AMIODARONE HCL 200 MG TABLET GT SCH (21:34)
[2018-11-02] VITALS: BP_SYST 96
[2018-11-02 00:01] VITALS: BP_SYST 96
[2018-11-02] MEDS: IPRATROPIUM BROM 0.5 MG/2.5 ML VIAL.NEB (ATROVENT) INH SCH ×4 (01:02→20:49)
[2018-11-02] MEDS: ALBUTEROL SULFATE 0.083% 2.5 MG/3 ML VIAL.NEB INH SCH ×4 (01:03→20:49)
[2018-11-02] MEDS: TAZOBACTAM IV SCH ×3 (05:02→22:01)
[2018-11-02] MEDS: D5W IV SCH ×3 (05:02→22:01)
[2018-11-02] MEDS: CEFTOLOZANE IV SCH ×3 (05:02→22:01)
[2018-11-02 08:47] VITALS: BP_SYST 133
[2018-11-02] MEDS: CLOTRIMAZOLE 1% TOPICAL CREAM 15 GM TP SCH ×2 (08:52→22:00)
[2018-11-02] MEDS: ASCORBIC ACID 500 MG TABLET GT SCH ×2 (08:53→21:31)
[2018-11-02] MEDS: POTASSIUM CHLORIDE 20 MEQ/PKT PACKET GT SCH ×2 (08:53→22:01)
[2018-11-02] MEDS: amLODIPine BESYLATE 10 MG TABLET GT SCH (08:53)
[2018-11-02] MEDS: FUROSEMIDE 20 MG/2 ML VIAL IVP SCH ×2 (08:53→21:31)
[2018-11-02] MEDS: GEMFIBROZIL 600 MG TABLET (LOPID) GT SCH ×2 (08:53→22:00)
[2018-11-02] MEDS: ATENOLOL 25 MG TABLET(TENORMIN) GT SCH (08:54)
[2018-11-02] MEDS: LEVOTHYROXINE SODIUM 0.15 MG TABLET GT SCH (08:54)
[2018-11-02] MEDS: FAMOTIDINE 20 MG TABLET GT SCH (08:54)
[2018-11-02] MEDS: BACLOFEN 10 MG TABLET GT SCH ×4 (08:54→21:31)
[2018-11-02] MEDS: ASPIRIN 81 MG TAB.CHEW GT SCH (08:54)
[2018-11-02] MEDS: LACTULOSE 20 GM/30 ML UDC GT SCH (08:55)
[2018-11-02] MEDS: DOCUSATE SODIUM 100 MG/10 ML UDC GT SCH (08:55)
[2018-11-02] MEDS: AMIODARONE HCL 200 MG TABLET GT SCH ×2 (08:55→21:32)
[2018-11-02] MEDS: azaTHIOprine 50 MG TABLET GT SCH (08:55)
[2018-11-02 12:31] VITALS: BP_SYST 108
[2018-11-02 16:07] VITALS: BP_SYST 131
[2018-11-02] MEDS: D5/0.45 NS 1,000 ML IV SCH (16:58)
[2018-11-02 20:00] VITALS: BP_SYST 135
[2018-11-02] MEDS: SENNOSIDES 8.6 MG TABLET GT SCH (21:31)
[2018-11-02] MEDS: RIVAROXABAN 10 MG TABLET GT SCH (21:33)
[2018-11-03 00:11] VITALS: BP_SYST 136
[2018-11-03] MEDS: ALBUTEROL SULFATE 0.083% 2.5 MG/3 ML VIAL.NEB INH SCH ×4 (01:40→19:56)
[2018-11-03] MEDS: IPRATROPIUM BROM 0.5 MG/2.5 ML VIAL.NEB (ATROVENT) INH SCH ×4 (01:40→19:56)
[2018-11-03] MEDS: CEFTOLOZANE IV SCH ×3 (05:11→21:20)
[2018-11-03] MEDS: D5W IV SCH ×3 (05:11→21:20)
[2018-11-03] MEDS: TAZOBACTAM IV SCH ×3 (05:11→21:20)
[2018-11-03 07:51] LABS: ANION GAP 10 (5-15); CALCIUM 10.2 mg/dL (8.4-11.0); CHLORIDE 101 mmol/L (98-107); GLUCOSE 126 mg/dL (70-99); POTASSIUM 4.4 mmol/L (3.5-5.1); SODIUM SERUM 136 mmol/L (136-145); UREA NITROGEN, BLOOD 20 mg/dL (8-21)
[2018-11-03 08:00] VITALS: BP_SYST 143
[2018-11-03] MEDS: LACTULOSE 20 GM/30 ML UDC GT SCH (08:50)
[2018-11-03] MEDS: DOCUSATE SODIUM 100 MG/10 ML UDC GT SCH (08:50)
[2018-11-03] MEDS: GEMFIBROZIL 600 MG TABLET (LOPID) GT SCH ×2 (08:59→20:48)
[2018-11-03] MEDS: FUROSEMIDE 20 MG/2 ML VIAL IVP SCH ×2 (08:59→20:48)
[2018-11-03] MEDS: ASCORBIC ACID 500 MG TABLET GT SCH ×2 (08:59→20:48)
[2018-11-03] MEDS: BACLOFEN 10 MG TABLET GT SCH ×4 (09:00→20:48)
[2018-11-03] MEDS: POTASSIUM CHLORIDE 20 MEQ/PKT PACKET GT SCH ×2 (09:00→20:47)
[2018-11-03] MEDS: azaTHIOprine 50 MG TABLET GT SCH (09:00)
[2018-11-03] MEDS: amLODIPine BESYLATE 10 MG TABLET GT SCH (09:00)
[2018-11-03] MEDS: FAMOTIDINE 20 MG TABLET GT SCH (09:00)
[2018-11-03] MEDS: AMIODARONE HCL 200 MG TABLET GT SCH ×2 (09:01→20:52)
[2018-11-03] MEDS: LEVOTHYROXINE SODIUM 0.15 MG TABLET GT SCH (09:01)
[2018-11-03] MEDS: ASPIRIN 81 MG TAB.CHEW GT SCH (09:01)
[2018-11-03] MEDS: ATENOLOL 25 MG TABLET(TENORMIN) GT SCH (09:01)
[2018-11-03] MEDS: CLOTRIMAZOLE 1% TOPICAL CREAM 15 GM TP SCH ×2 (09:02→20:46)
[2018-11-03 12:11] VITALS: BP_SYST 128
[2018-11-03 16:04] VITALS: BP_SYST 134
[2018-11-03] MEDS: D5/0.45 NS 1,000 ML IV SCH (17:19)
[2018-11-03 20:42] VITALS: BP_SYST 126
[2018-11-03] MEDS: RIVAROXABAN 10 MG TABLET GT SCH (20:49)
[2018-11-03] MEDS: SENNOSIDES 8.6 MG TABLET GT SCH (20:49)
[2018-11-04] MEDS: INSULIN REGULAR, HUMAN 100 UNITS/ML, 10 ML VIAL (novoLIN R) SUBCUT PRN ×2 (00:05→05:15)
[2018-11-04] MEDS: ALBUTEROL SULFATE 0.083% 2.5 MG/3 ML VIAL.NEB INH SCH ×3 (01:02→13:51)
[2018-11-04] MEDS: IPRATROPIUM BROM 0.5 MG/2.5 ML VIAL.NEB (ATROVENT) INH SCH ×3 (01:02→13:51)
[2018-11-04 02:21] VITALS: BP_SYST 112
[2018-11-04] MEDS: TAZOBACTAM IV SCH ×2 (05:02→16:12)
[2018-11-04] MEDS: CEFTOLOZANE IV SCH ×2 (05:02→16:12)
[2018-11-04] MEDS: D5W IV SCH ×2 (05:02→16:12)
[2018-11-04 08:00] VITALS: BP_SYST 140
[2018-11-04] MEDS: azaTHIOprine 50 MG TABLET GT SCH (10:43)
[2018-11-04] MEDS: POTASSIUM CHLORIDE 20 MEQ/PKT PACKET GT SCH (10:43)
[2018-11-04] MEDS: ATENOLOL 25 MG TABLET(TENORMIN) GT SCH (10:43)
[2018-11-04] MEDS: FAMOTIDINE 20 MG TABLET GT SCH (10:43)
[2018-11-04] MEDS: BACLOFEN 10 MG TABLET GT SCH ×2 (10:44→16:11)
[2018-11-04] MEDS: amLODIPine BESYLATE 10 MG TABLET GT SCH (10:44)
[2018-11-04] MEDS: ASPIRIN 81 MG TAB.CHEW GT SCH (10:44)
[2018-11-04] MEDS: DOCUSATE SODIUM 100 MG/10 ML UDC GT SCH (10:45)
[2018-11-04] MEDS: LEVOTHYROXINE SODIUM 0.15 MG TABLET GT SCH (10:45)
[2018-11-04] MEDS: GEMFIBROZIL 600 MG TABLET (LOPID) GT SCH (10:45)
[2018-11-04] MEDS: ASCORBIC ACID 500 MG TABLET GT SCH (10:45)
[2018-11-04] MEDS: CLOTRIMAZOLE 1% TOPICAL CREAM 15 GM TP SCH (10:46)
[2018-11-04] MEDS: FUROSEMIDE 20 MG/2 ML VIAL IVP SCH (10:47)
[2018-11-04] MEDS: LACTULOSE 20 GM/30 ML UDC GT SCH (11:51)
[2018-11-04 12:23] VITALS: BP_SYST 141
[2018-11-04 16:02] VITALS: BP_SYST 144
[2018-11-04 17:35] VITALS: BP_SYST 140
[2018-11-05] MEDS ORDERED: AMIODARONE HCL 200 MG TABLET PO SCH (09:00)
== END 2018-11-04 18:40 | DRG 207 ==
LOC: SED 06:21 → SIC 08:58 → SMU 10-31 21:24 → STU 10-31 22:15
PROVIDERS: ADMIT Family Medicine; ATTEND Family Medicine
PROC: 5A1955Z Respiratory Ventilation, Greater than 96 Consecutive Hours (ICD-10-PCS; principal; 2018-10-23)
PROC: 05HY33Z Insertion of Infusion Device into Upper Vein, Percutaneous Approach (ICD-10-PCS; 2018-10-24)
PROC: B54MZZA Ultrasonography of Right Upper Extremity Veins, Guidance (ICD-10-PCS; 2018-10-24)
PROC: 0W993ZZ Drainage of Right Pleural Cavity, Percutaneous Approach (ICD-10-PCS; 2018-10-27)
DX: J69.0 Pneumonitis due to inhalation of food and vomit (principal); G93.41 Metabolic encephalopathy; G82.50 Quadriplegia, unspecified; J96.21 Acute and chronic respiratory failure with hypoxia; E87.0 Hyperosmolality and hypernatremia; I47.2 Ventricular tachycardia; I13.0 Hypertensive heart and chronic kidney disease with heart failure and stage 1 through stage 4 chronic kidney disease, or unspecified chronic kidney disease; J44.1 Chronic obstructive pulmonary disease with (acute) exacerbation; J95.851 Ventilator associated pneumonia; Z99.11 Dependence on respirator [ventilator] status; B35.6 Tinea cruris; D63.8 Anemia in other chronic diseases classified elsewhere; E03.9 Hypothyroidism, unspecified; E11.22 Type 2 diabetes mellitus with diabetic chronic kidney disease; E11.65 Type 2 diabetes mellitus with hyperglycemia; I50.9 Heart failure, unspecified; G35 Multiple sclerosis; K21.9 Gastro-esophageal reflux disease without esophagitis; N18.9 Chronic kidney disease, unspecified; N21.0 Calculus in bladder; I25.10 Atherosclerotic heart disease of native coronary artery without angina pectoris; E78.5 Hyperlipidemia, unspecified; B96.5 Pseudomonas (aeruginosa) (mallei) (pseudomallei) as the cause of diseases classified elsewhere; B96.4 Proteus (mirabilis) (morganii) as the cause of diseases classified elsewhere; Z93.0 Tracheostomy status; Z93.1 Gastrostomy status; Z74.01 Bed confinement status; Z88.1 Allergy status to other antibiotic agents; Z88.8 Allergy status to other drugs, medicaments and biological substances; Z79.899 Other long term (current) drug therapy; Z85.46 Personal history of malignant neoplasm of prostate; Z79.82 Long term (current) use of aspirin; I25.2 Old myocardial infarction
CPT/HCPCS: 32555; 36415; 36600; 70450-TC; 71045; 71250-TC; 80048; 80053; 81000-TC; 82607; 82746; 82803-TC; 82947-TC; 82962; 83540-TC; 83550-TC; 83605; 83880; 84157-TC; 84484; 85025; 85379; 85610-TC; 85730-TC; 87040-TC; 87070-TC; 87081; 87086; 87101; 87116; 87186-TC; 87205-TC; 88108; 88305; 89051-TC; 89060-TC; 93005; 93306; 94002; 94003; 94640; 94760; 96365; 96366; 99291; C1751; C1769; J0690; J0695; J1815; J1940; J2543; J3370; J3480; J7030; J7060; J7500; J7613; P9046